=== PATIENT | female | born 1940 | race American Indian/Alaskan Native ===

== ENCOUNTER 2020-10-04 18:52 | Emergency (ER) | payer OTHER ==
[2020-10-04] MEDS ORDERED: BAMLANIVIMAB 700 MG in SODIUM CHLORIDE 250 ML IVPB ONE (19:00)
[2020-10-04 19:20] VITALS: BMI 22.8
[2020-10-04 20:23] LABS: HEMATOCRIT 36.3 % (32.4-45.2); HEMOGLOBIN 11.9 GM/dL (10.7-15.3); MCH 31.1 pg (25.7-33.7); MCHC 32.9 g/dl (32.0-36.0); MEAN CELL VOLUME 94.6 fl (80-96); PLATELET COUNT 236 K/MM3 (134-434); RBC 3.84 M/mm3 (3.60-5.2); RDW 14.7 % (11.6-15.6); WHITE BLOOD COUNT 6.5 K/mm3 (4.0-10.0)
[2020-10-04 20:34] LABS: POTASSIUM 4.9 mmol/L (3.5-5.1)
[2020-10-04 20:36] LABS: CALCIUM 8.2 mg/dL (8.5-10.1)
[2020-10-04 20:37] LABS: BLOOD UREA NITROGEN 16.2 mg/dL (7-18)
[2020-10-04 22:53] VITALS: BP 128/55; PULSE 90; TEMP 98.6
== END 2020-10-04 23:14 | disposition home or self-care (01) ==
LOC: JER 18:52 → JCOVINFU 18:52
DX: U07.1 COVID-19 (principal)
CPT/HCPCS: 36415; 71046-TC-FY; 80048; 85027; 99284-25; M0239; Q0239